=== PATIENT | female | born 1980 | race Caucasian/White ===

== ENCOUNTER 2016-05-13 23:46 | Observation (INO) | payer OTHER ==
[2016-05-14] MEDS ORDERED: NORMAL SALINE 1000 ML 1,000 ML IV ONE (01:23)
[2016-05-14] MEDS ORDERED: ONDANSETRON HCL INJ/PF 4 MG/2 ML SDV IV ONE ×2 (01:23→04:37)
[2016-05-14 01:51] LABS: HEMATOCRIT 51.1 % (36.0-47.0); HEMOGLOBIN 16.6 g/dL (12.0-15.5); HGB HCT DIFFERENCE -1.3; MEAN CORPUSCULAR HEMOGLOBIN 31.4 pg (27.0-33.4); MEAN CORPUSCULAR HGB CONC 32.4 g/dL (32.0-36.0); MEAN CORPUSCULAR VOLUME 97 fl (80-97); RED BLOOD COUNT 5.28 10^6/uL (3.72-5.28); RED CELL DISTRIBUTION WIDTH 14.5 % (11.5-14.0); WHITE BLOOD COUNT 11.3 10^3/uL (4.0-10.5)
[2016-05-14 01:58] LABS: ALANINE AMINOTRANSFERASE 130 U/L (9-52); ALBUMIN 5.3 g/dL (3.5-5.0); ALKALINE PHOSPHATASE 82 U/L (38-126); ASPARTATE AMINO TRANSFERASE 150 U/L (14-36); BILIRUBIN,DIRECT 0.2 mg/dL (0.0-0.3); BILIRUBIN,TOTAL 4.2 mg/dL (0.2-1.3); BLOOD UREA NITROGEN 31 mg/dL (7-20); CALCIUM 11.5 mg/dL (8.4-10.2); CREATININE RESULT 1.24 mg/dL (0.52-1.25); GLUCOSE 225 mg/dL (75-110)
[2016-05-14] MEDS ORDERED: PROMETHAZINE HCL INJ 25 MG/1 ML VIAL IM ONE (01:58)
--- NOTE | 2016-05-14 02:00 | ER Document Report ---
ED General - General Chief Complaint: Nausea/Vomiting Stated Complaint: VOMITING Notes: Patient is a 35-year-old female presents with complaint of intractable vomiting. She says been ongoing for just over a day. She says she cannot hold down food or liquids. No diarrhea. No abdominal pain. No fevers. No blood in emesis. She was admitted back in June for a cholesterol. Patient says she drinks only on occasion now. She says she does not go through withdrawal anymore. She said the last time she drank alcohol was on Monday which was 5 days ago. No fevers. Only sick contact with the child who had some vomiting. No other complaints at this time. TRAVEL OUTSIDE OF THE [place] IN LAST 30 DAYS: No - Related Data Allergies/Adverse Reactions: No Known Allergies Allergy (Verified 11/19/13 20:02) Past Medical History - Social History Smoking Status: Never Smoker Chew tobacco use (# tins/day): No Frequency of alcohol use: Occasional Drug Abuse: None Family History: Reviewed & Not Pertinent Patient has suicidal ideation: No Patient has homicidal ideation: No Renal/ Medical History: Denies: Hx Peritoneal Dialysis Psychiatric Medical History: Reports: Hx Anxiety, Hx Depression Past Surgical History: Reports: Hx Breast Surgery - Immunizations Hx Diphtheria, Pertussis, Tetanus Vaccination: Yes Review of Systems - Review of Systems Notes: My Normal Review Basic REVIEW OF SYSTEMS: CONSTITUTIONAL : Denies fever, chills, or sweats. Denies recent illness. EENT: Denies eye, ear, throat, or mouth pain or symptoms. Denies nasal or sinus congestion. RESPIRATORY: Denies cough, cold, or chest congestion. Denies shortness of breath, difficulty breathing, or wheezing. GASTROINTESTINAL: Denies abdominal pain. Recurrent vomiting GENITOURINARY: Denies difficulty urinating, painful urination, burning, frequency, or blood in urine. FEMALE GENITOURINARY: Denies vaginal bleeding, abnormal or irregular periods. LMP: MUSCULOSKELETAL: Denies neck or back pain or joint pain or swelling. SKIN: Denies rash or skin lesions. NEUROLOGICAL: Denies altered mental status or loss of consciousness. Denies headache. Denies weakness or paralysis or loss of use of either side. Denies problems with gait or speech. Denies sensory or motor loss. ALL OTHER SYSTEMS REVIEWED AND NEGATIVE. Physical Exam - Vital signs Vitals: Temp Pulse Resp BP Pulse Ox 97.4 F 150 H 16 115/59 L 96 05/13/16 23:53 05/13/16 23:53 05/13/16 23:53 05/13/16 23:53 05/13/16 23:53 - Notes Notes: General Appearance: Well nourished, alert, cooperative, no acute distress, no obvious discomfort. Well-appearing. Vitals: reviewed, See vital signs table. Head: no swelling or tenderness to the head Eyes: PERRL, EOMI, Conjuctiva clear Mouth: No decreasd moisture Neck: Supple, no neck tenderness, No thyromegaly Lungs: No wheezing, No rales, No rhonci, No accessory muscle use, good air exchange bilaterally. Heart: Tachycardic rate, Regular rythm, No murmur, no rub Abdomen: Normal BS, soft, No rigidity, No abdominal tenderness, No guarding, no rebound, no abdominal masses, no organomegaly Extremities: strength 5/5 in all extremities, good pulses in all extremities, no swelling or tenderness in the extremities, no edema. Skin: warm, dry, appropriate color, no rash Neuro: speech clear, oriented x 3, normal affect, responds appropriately to questions. Course - Vital Signs Vital signs: Temp Pulse Resp BP Pulse Ox 97.4 F 150 H 20 115/59 L 96 05/13/16 23:53 05/13/16 23:53 05/14/16 01:00 05/13/16 23:53 05/13/16 23:53 - Laboratory Result Diagrams: 05/14/16 01:20 05/14/16 01:20 Laboratory results interpreted by me: 05/14/16 05/14/16 01:20 01:20 WBC 11.3 H Hgb 16.6 H Hct 51.1 H RDW 14.5 H Seg Neuts % (Manual) 79 H Lymphocytes % (Manual) 12 L Abs Neuts (Manual) 8.9 H Potassium 5.5 H Carbon Dioxide 12 L Anion Gap 35 H BUN 31 H Est GFR ( Amer) 59 L Est GFR (Non-Af Amer) 49 L Glucose 225 H Calcium 11.5 H Total Bilirubin 4.2 H AST 150 H ALT 130 H Total Protein 11.0 H Albumin 5.3 H - Transfer of Care Notes: 05/14/16 05:33 Patient's nausea is improving. She is very acidotic with big ion gap. She also has a slight bump in her liver enzymes. I see in the past she does have a history of alcohol abuse. She initially told me that she just drank one or 2 beers on Monday and no other alcohol use. I went back and asked her again about this being that I have concern that this could be alcohol induced. She now tells me that she drank Monday and Monday and then stopped. She said that Monday her symptoms started. She again tells me that she only drank a small amount of alcohol on those days; however, I suspect that there is a good chance she drank a little more than what she leads onto and that this is probably why she is acidotic and has been vomiting and feels unwell. Initially she was a little bit hyperglycemic. Her sugar returned to normal just IV fluids. I do not suspect new-onset diabetes. Her Accu-Chek was 110. Patient' s will be admitted for further workup and treatment. I will order a total of 3 L of fluids. She has received 1-1/2 L thus far. Dictation of this chart was performed using voice recognition software; therefore, there may be some unintended grammatical errors. 05/14/16 05:36 Discharge - Discharge Clinical Impression: Elevated LFTs, Hyperkalemia, Metabolic acidosis Vomiting Qualifiers: Vomiting type: unspecified Vomiting Intractability: unspecified Nausea presence : with nausea Qualified Code(s): R11.2 - Nausea with vomiting, unspecified Condition: Stable Disposition: ADMITTED INPATIENT Admitting Provider: Hospitalist Unit Admitted: [facility]
[2016-05-14 02:06] LABS: CARBON DIOXIDE 12 mmol/L (22-30); CHLORIDE 98 mmol/L (98-107); POTASSIUM 5.5 mmol/L (3.6-5.0); SODIUM 144.5 mmol/L (137-145)
[2016-05-14 02:07] LABS: ANION GAP 35 (5-19)
[2016-05-14 02:18] LABS: BASOPHILS % (MANUAL) 0 % (0-2); EOSINOPHILS % (MANUAL) 0 % (0-6); LYMPHOCYTES % (MANUAL) 12 % (13-45); RBC MORPHOLOGY COMMENT NORMO-CYTIC/CHROMIC; TOTAL CELLS COUNTED 100
[2016-05-14] MEDS ORDERED: PROMETHAZINE HCL INJ 25 MG/1 ML VIAL ONE (03:56)
[2016-05-14] MEDS ORDERED: NORMAL SALINE 1000 ML 1,000 ML IV PRN (04:36)
[2016-05-14 06:30] LABS: BLOOD UREA NITROGEN 21 mg/dL (7-20); CALCIUM 9.7 mg/dL (8.4-10.2); CARBON DIOXIDE 13 mmol/L (22-30); CHLORIDE 107 mmol/L (98-107); CREATININE RESULT 0.67 mg/dL (0.52-1.25); GLUCOSE 116 mg/dL (75-110); MAGNESIUM 1.8 mg/dL (1.6-2.3)
[2016-05-14 06:37] LABS: SODIUM 142.6 mmol/L (137-145)
[2016-05-14 06:40] LABS: ANION GAP 23 (5-19); POTASSIUM 4.4 mmol/L (3.6-5.0)
[2016-05-14] MEDS ORDERED: NORMAL SALINE 1000 ML 2,000 ML IV ONE (06:44)
[2016-05-14] MEDS ORDERED: ACETAMINOPHEN 325 MG TABLET PO PRN (07:24)
[2016-05-14] MEDS ORDERED: PROMETHAZINE HCL INJ 25 MG/1 ML VIAL IV PRN (07:30)
--- NOTE | 2016-05-14 07:54 | PDOC H&P ---
History of Present Illness Admission Date/PCP: 05/14/16 05:48 [facility] Patient complains of: nausea, vomiting History of Present Illness: CHERI RUBY is a 35 year old female with a history of alcohol abuse who presents to the emergency room for evaluation of a several day history of recurrent vomiting. Cannot even keep down water. No unusual oral intake. No friends or family with similar complaints. No diarrhea. Small bowel movement 24 hours ago. Only has abdominal pain during the vomiting itself. No fever. No hematemesis or coffee ground emesis. Please review emergency room physician notes concerning his discussions with patient concerning her alcohol intake. She admits to drinking alcohol Monday and Monday but is quite evasive about how much. Symptoms started the following day. Patient has been discussed with emergency room physician who evaluated the patient. . Laboratory results are listed in [employer] and are reviewed. Social history/personal habits: . 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 Denies use of tobacco or illicit drugs. Admits to drinking vodka, but is quite evasive about how much she drinks. Allergies/adverse reactions NKDA. Home medications none REVIEW OF SYSTEMS: Constitutional: No fever or chills. Eyes: No current vision complaints. ENT: No swallowing problems or complaints. No hearing problems or complaints. Pulmonary: No current complaints. Cardiovascular: No current complaints, including chest pain. Gastrointestinal: See history and present illness. Skin: No current complaints, including rashes. Hematologic: Easy bruising. Neurologic: No current complaints, including numbness or tingling. Musculoskeletal: No current complaints, including painful joints. Psychiatric: Anxiety depression; denies suicidal or homicidal ideation. Endocrine: No current complaints, including polyuria. Genitourinary: No current complaints, including dysuria. PHYSICAL EXAMINATION: 5 feet 5 inches tall. 72 kg. Temperature 97.4. Blood pressure 123/99. Pulse 88 and regular. Respirations are 20 and unlabored. 100% saturation on room air. Female emergency room nurse Patricia is present. Slightly overweight somewhat chronically ill-appearing female who appears a bit older than her stated age. Appears to feel a bit under the weather, so to speak. Otherwise, pleasant awake alert and cooperative. Mildly anxious, without agitation. Skin is warm and dry. No grossly obvious evidence of rash in areas of skin examined. No subcutaneous nodules palpated. ENT: Hearing grossly normal to normal conversation. Tongue midline on protrusion pink and slightly tacky. Eyes: No scleral icterus. Pupils equal and reactive to light at 4 mm. [place] conjunctivae. Neck is supple and nontender to gentle active range of motion and palpation. Midline trachea. No palpable thyroid nodule mass enlargement or tenderness. Lymphatic: No palpable cervical or clavicular nodes. Neck and lymphatic exams limited by patient body habitus. Psychiatric: Fair to reasonable insight into acute and chronic medical issues. Oriented to time location and why here. Lungs: Auscultation reveals clear and equal breath sounds bilaterally. No use of accessory respiratory muscles. Cardiovascular: Heart regular rate and rhythm, without gallop murmur or rub. No carotid or abdominal aortic bruits. No ankle or pedal edema. palpable dorsalis pedis pulses. Abdomen: soft, slightly distended essentially nontender with positive bowel sounds. Unable to adequately evaluate abdomen for masses or organomegaly due to distention. Extremities: Feet are warm and dry. No calf tenderness to compression. No grossly obvious visual evidence of calf swelling. Gentle manipulation of lower extremities fails to reveal any obvious evidence of injury or instability to knees hips or ankles. Neurologic: Moves upper extremities grossly normally. Patellar reflexes absent. Absent Babinski. Light touch is intact at feet. Dorsiflexion and plantarflexion of feet 5 / 5 and symmetric. Past Medical History Cardiac Medical History: Denies: Congestive Heart Failure, DVT, Myocardial Infarction, Hyperlipidema, Hypertension, Pulmonary Embolism Pulmonary Medical History: Denies: Asthma, Chronic Obstructive Pulmonary Disease (COPD) EENT Medical History: Denies: Eyes, Ears, Throat Neurological Medical History: Reports: Seizures - Alcohol withdrawal; last episode June of last year. Denies: Hemorrhagic CVA, Ischemic CVA Endocrine Medical History: Denies: Diabetes Mellitus Type 1, Diabetes Mellitus Type 2, Hyperthyroidism, Hypothyroidism Renal/ Medical History: Reports: None GI Medical History: Denies: Cirrhosis, Gastroesophageal Reflux Disease, Hepatitis, Peptic Ulcer Disease Musculoskeltal Medical History: Denies: Arthritis Skin Medical History: Reports: None Denies: Eczema, Psoriasis Psychiatric Medical History: Reports: Alcohol Dependency, Depression, General Anxiety Disorder Denies: Substance Abuse, Tobacco Dependency Hematology: Reports: Other - Easy bruising. Infectious Medical History: Denies: Hepatitis B, Hepatitis C Past Surgical History Past Surgical History: Reports: Other - [place] teeth extraction. Lasik surgery. Social History Information Source: Patient, Emergency Med Personnel, [facility] Records Lives with: Spouse/Significant other Smoking Status: Never Smoker Frequency of Alcohol Use: Heavy - Suspected Drugs: None - Advance Directive Resuscitation Status: Full Code Surrogate healthcare decision maker:: Family History Family History: Reviewed & Not Pertinent Parental Family History Reviewed: Yes Children Family History Reviewed: Yes Sibling(s) Family History Reviewed.: Yes Medication/Allergy Home Medications: Folic Acid 1 mg PO DAILY #30 tablet 05/15/16 Multivitamin [Multivitamins] 1 each PO DAILY #30 tab.chew 05/15/16 Omeprazole Magnesium [Prilosec Otc] 20 mg PO BID #60 tablet.dr 05/15/16 Ondansetron [Zofran Odt 4 mg Tablet] 4 mg PO Q4HP PRN #30 tab.rapdis 05/15/16 Thiamine HCl [Thiamine 100 mg Tablet] 100 mg PO DAILY #30 tablet 05/15/16 Allergies/Adverse Reactions: No Known Allergies Allergy (Verified 11/19/13 20:02) Physical Exam Vital Signs: Temp Pulse Resp BP Pulse Ox 97.4 F 150 H 20 115/59 L 96 05/13/16 23:53 05/13/16 23:53 05/14/16 01:00 05/13/16 23:53 05/13/16 23:53 Assessment & Plan - Diagnosis (1) ARF (acute renal failure) Qualifiers: Acute renal failure type: unspecified Qualified Code(s): N17.9 - Acute kidney failure, unspecified Is this a current diagnosis for this admission?: YesPlan: Likely prerenal in etiology. Should clear with IV fluids. Follow-up chemistry. (2) Elevated LFTs Is this a current diagnosis for this admission?: YesPlan: Likely due to underlying acute and chronic alcohol abuse. Follow-up chemistry. (3) Hypercalcemia Is this a current diagnosis for this admission?: YesPlan: Should clear with hydration. Follow-up chemistry. (4) Hyperkalemia Is this a current diagnosis for this admission?: YesPlan: Should clear with hydration. Follow-up chemistry. (5) Metabolic acidosis Is this a current diagnosis for this admission?: YesPlan: Likely due at least part to dehydration. Should clear with hydration. Follow- up chemistry. (6) Vomiting Qualifiers: Vomiting type: unspecified Vomiting Intractability: unspecified Nausea presence: with nausea Qualified Code(s): R11.2 - Nausea with vomiting, unspecified Is this a current diagnosis for this admission?: YesPlan: Possibly due to alcoholic gastritis. Viral etiology also. When necessary Phenergan. Ice chips only. Advance diet as tolerated. IV Pepcid. I have strongly encouraged patient not to get out of bed without notifying staff , to avoid a fall with injury. Knee high SCDs for DVT prophylaxis; will check coags given patient's underlying probable liver disease prior to instituting Lovenox or heparin. Impression and plans were discussed with patient, who concurs. Time spent in evaluation and management of patient: 64 minutes. (7) Alcohol use Is this a current diagnosis for this admission?: YesPlan: Daily banana bag. When necessary Ativan.
[2016-05-14] MEDS ORDERED: NORMAL SALINE 1000 ML 1,000 ML with THIAMINE HCL 100 MG, MVI, ADULT NO.1 WITH VIT K 10 ... IV PRN ×8 (08:00→12:00)
[2016-05-14 08:22] LABS: PROTHROMBIN TIME 14.4 SEC (11.4-15.4)
[2016-05-14 08:23] LABS: PARTIAL THROMBOPLASTIN TIME 26.4 SEC (23.5-35.8)
[2016-05-14] MEDS: NORMAL SALINE 1000 ML 1,000 ML IV PRN ×3 (09:14→22:40)
[2016-05-14] MEDS: DOCUSATE SODIUM 100 MG CAPSULE PO SCH ×2 (09:38→17:44)
[2016-05-14] MEDS: FAMOTIDINE INJ/PF 20 MG/2 ML SDV IV SCH ×2 (09:39→22:24)
[2016-05-14] MEDS: LORAZEPAM INJ 2 MG/1 ML VIAL IV PRN ×2 (09:41→22:48)
[2016-05-14 13:27] LABS: ANION GAP 15 (5-19); BLOOD UREA NITROGEN 15 mg/dL (7-20); CALCIUM 8.6 mg/dL (8.4-10.2); CARBON DIOXIDE 17 mmol/L (22-30); CHLORIDE 110 mmol/L (98-107); CREATININE RESULT 0.48 mg/dL (0.52-1.25); GLUCOSE 101 mg/dL (75-110); SODIUM 142.2 mmol/L (137-145)
[2016-05-14 13:40] LABS: POTASSIUM 3.3 mmol/L (3.6-5.0)
[2016-05-14 19:51] LABS: APPEARANCE,URINE CLEAR; BILIRUBIN,URINE NEGATIVE (NEGATIVE); GLUCOSE, URINE NEGATIVE (NEGATIVE); KETONES,URINE 20 mg/dL (NEGATIVE); LEUKOCYTE ESTERASE,URINE NEGATIVE (NEGATIVE); NITRITE,URINE NEGATIVE (NEGATIVE); PROTEIN,URINE NEGATIVE (NEGATIVE)
[2016-05-14 20:04] LABS: URINE BARBITURATES SCREEN NEGATIVE; URINE METHADONE SCREEN NEGATIVE; URINE OPIATES LOW NEGATIVE; URINE PHENCYCLIDINE SCREEN NEGATIVE
[2016-05-14] MEDS: POTASSI CL 20 MEQ/50 ML RIDER 20 MEQ/50 ML RTUPB IV SCH ×2 (20:34→22:23)
[2016-05-15] MEDS: NORMAL SALINE 1000 ML 1,000 ML IV PRN (04:43)
[2016-05-15 06:52] LABS: ABSOLUTE LYMPHOCYTES (AUTO) 0.9 10^3/uL (0.5-4.7); ABSOLUTE MONOCYTES (AUTO) 0.5 10^3/uL (0.1-1.4); ABSOLUTE NEUT (AUTO) 3.3 10^3/uL (1.7-8.2); BASOPHILS % (AUTO) 0.5 % (0-2); HEMATOCRIT 37.8 % (36.0-47.0); HGB HCT DIFFERENCE 0.9; LYMPHOCYTES % (AUTO) 19.5 % (13-45); MEAN CORPUSCULAR HEMOGLOBIN 32.9 pg (27.0-33.4); MEAN CORPUSCULAR HGB CONC 34.2 g/dL (32.0-36.0); MEAN CORPUSCULAR VOLUME 96 fl (80-97); MONOCYTES % (AUTO) 10.1 % (3-13); RED BLOOD COUNT 3.93 10^6/uL (3.72-5.28); RED CELL DISTRIBUTION WIDTH 14.5 % (11.5-14.0); SEGMENTED NEUTROPHILS % (AUTO) 69.9 % (42-78); WHITE BLOOD COUNT 4.7 10^3/uL (4.0-10.5)
[2016-05-15 07:05] LABS: HEMOGLOBIN 12.9 g/dL (12.0-15.5)
[2016-05-15 07:12] LABS: ALANINE AMINOTRANSFERASE 91 U/L (9-52); ALKALINE PHOSPHATASE 54 U/L (38-126); ANION GAP 14 (5-19); ASPARTATE AMINO TRANSFERASE 128 U/L (14-36); BILIRUBIN,DIRECT 0.1 mg/dL (0.0-0.3); BILIRUBIN,TOTAL 4.4 mg/dL (0.2-1.3); BLOOD UREA NITROGEN 7 mg/dL (7-20); CALCIUM 8.4 mg/dL (8.4-10.2); CARBON DIOXIDE 19 mmol/L (22-30); CHLORIDE 107 mmol/L (98-107); CREATININE RESULT 0.42 mg/dL (0.52-1.25); GLUCOSE 77 mg/dL (75-110); POTASSIUM 3.3 mmol/L (3.6-5.0); SODIUM 140.3 mmol/L (137-145); TOTAL PROTEIN 7.1 g/dL (6.3-8.2)
[2016-05-15] MEDS: FAMOTIDINE INJ/PF 20 MG/2 ML SDV IV SCH (09:58)
[2016-05-15] MEDS: DOCUSATE SODIUM 100 MG CAPSULE PO SCH (09:59)
[2016-05-15] MEDS ORDERED: NORMAL SALINE 1000 ML 1,000 ML with THIAMINE HCL 100 MG, MVI, ADULT NO.1 WITH VIT K 10 ... IV PRN ×4 (10:00)
[2016-05-15] MEDS ORDERED: POTASSIUM CHLORIDE 10 MEQ TABLET.SA PO ONE (10:15)
--- NOTE | 2016-05-15 10:18 | PDOC DISCHARGE SUMMARY ---
General - Admit/Disc Date/PCP Admission Date/Primary Care Provider: 05/14/16 07:00 Discharge Date: 05/15/16 - Discharge Diagnosis (1) ARF (acute renal failure) Is this a current diagnosis for this admission?: Yes (2) Hypercalcemia Is this a current diagnosis for this admission?: Yes (3) Hyperkalemia Is this a current diagnosis for this admission?: Yes (4) Metabolic acidosis Is this a current diagnosis for this admission?: Yes (5) Alcoholic gastritis without bleeding Is this a current diagnosis for this admission?: Yes (6) Alcoholic hepatitis Is this a current diagnosis for this admission?: Yes - Additional Information Resuscitation Status: Full Code Discharge Diet: Regular Discharge Activity: Activity As Tolerated, Balance Activity w/Rest Home Medications: Folic Acid 1 mg PO DAILY #30 tablet 05/15/16 Multivitamin [Multivitamins] 1 each PO DAILY #30 tab.chew 05/15/16 Omeprazole Magnesium [Prilosec Otc] 20 mg PO BID #60 tablet.dr 05/15/16 Ondansetron [Zofran Odt 4 mg Tablet] 4 mg PO Q4HP PRN #30 tab.rapdis 05/15/16 Thiamine HCl [Thiamine 100 mg Tablet] 100 mg PO DAILY #30 tablet 05/15/16 Additional Information: Stop all alcohol History of Present Illness Patient complains of: Nausea and vomiting History of Present Illness: CHERI RUBY is a 35 year old female, with history of alcohol abuse presents to the hospital with nausea and vomiting of several days duration and some abdominal discomfort but no diarrhea. Patient is unable to keep anything by mouth. The patient went to the emergency room and found to have a low bicarbonate level with elevated creatinine and therefore the patient was referred for admission for details please refer to history and physical examination performed by the admitting physician. Hospital Course Hospital Course: The patient was admitted to telemetry. The patient was kept nothing by mouth and IV hydration was performed. Intravenous Pepcid was given for possible gastritis. Supplemental thiamine, folic acid and multivitamins were given. The patient s creatinine was monitored and has normalized. Acidosis improved. Liver functions were also noted to be elevated is trending down. The patient's symptomatology significantly improved with hydration. Diet was advanced and he tolerated it. Patient was educated about chronic complications of alcohol and she understood. Course was noted for hypokalemia which was replaced. Initial hypercalcemia resolved as well. The rest of the hospital stay is unremarkable. Physical Exam Vital Signs: Temp Pulse Resp BP Pulse Ox 98.1 F 90 18 140/91 H 100 05/15/16 07:28 05/15/16 07:28 05/15/16 07:28 05/15/16 07:28 05/15/16 07:28 Intake & Output 05/14/16 05/15/16 05/16/16 06:59 06:59 06:59 Intake Total 5413 Output Total 1400 Balance 4013 Weight 72.4 kg General appearance: PRESENT: no acute distress, cooperative Head exam: PRESENT: normocephalic Eye exam: PRESENT: EOMI Mouth exam: PRESENT: moist, neck supple Neck exam: ABSENT: JVD Respiratory exam: PRESENT: clear to auscultation karan. ABSENT: rhonchi, wheezes Cardiovascular exam: PRESENT: RRR. ABSENT: gallop GI/Abdominal exam: PRESENT: soft. ABSENT: distended, tenderness Extremities exam: ABSENT: pedal edema Neurological exam: PRESENT: alert, awake, oriented to person, oriented to place , oriented to time, oriented to situation Skin exam: PRESENT: dry, warm. ABSENT: cyanosis Results Laboratory Results: 05/15/16 06:44 05/15/16 06:44 05/14/16 05/14/16 05/15/16 12:22 19:20 06:44 WBC 4.7 RBC 3.93 Hgb 12.9 D Hct 37.8 MCV 96 MCH 32.9 MCHC 34.2 RDW 14.5 H Plt Count 112 L Seg Neutrophils % 69.9 Lymphocytes % 19.5 Monocytes % 10.1 Eosinophils % 0.0 Basophils % 0.5 Absolute Neutrophils 3.3 Absolute Lymphocytes 0.9 Absolute Monocytes 0.5 Absolute Eosinophils 0.0 Absolute Basophils 0.0 Sodium 142.2 Potassium 3.3 L D Chloride 110 H Carbon Dioxide 17 L Anion Gap 15 BUN 15 Creatinine 0.48 L Est GFR ( Amer) > 60 Est GFR (Non-Af Amer) > 60 Glucose 101 Calcium 8.6 Total Bilirubin AST ALT Alkaline Phosphatase Total Protein Albumin Urine Color NURY Urine Appearance CLEAR Urine pH 6.0 Ur Specific Fults 1.020 Urine Protein NEGATIVE Urine Glucose (UA) NEGATIVE Urine Ketones 20 H Urine Blood NEGATIVE Urine Nitrite NEGATIVE Ur Leukocyte Esterase NEGATIVE Urine WBC (Auto) 3 Urine RBC (Auto) 1 05/15/16 06:44 WBC RBC Hgb Hct MCV MCH MCHC RDW Plt Count Seg Neutrophils % Lymphocytes % Monocytes % Eosinophils % Basophils % Absolute Neutrophils Absolute Lymphocytes Absolute Monocytes Absolute Eosinophils Absolute Basophils Sodium 140.3 Potassium 3.3 L Chloride 107 Carbon Dioxide 19 L Anion Gap 14 BUN 7 Creatinine 0.42 L Est GFR ( Amer) > 60 Est GFR (Non-Af Amer) > 60 Glucose 77 Calcium 8.4 Total Bilirubin 4.4 H AST 128 H ALT 91 H Alkaline Phosphatase 54 Total Protein 7.1 Albumin 4.0 Urine Color Urine Appearance Urine pH Ur Specific Fults Urine Protein Urine Glucose (UA) Urine Ketones Urine Blood Urine Nitrite Ur Leukocyte Esterase Urine WBC (Auto) Urine RBC (Auto) Qualifiers [place] BEING DISCHARGED WITH ANY OF THE FOLLOWING DIAGNOSIS?: No Plan Discharge Plan: Follow-up with primary care physician in one week. Follow-up with gastroenterology as outpatient in 1-2 weeks for possible endoscopy. Time Spent: Less than 30 Minutes
[2016-05-15 12:30] VITALS: BP 115/59
== END 2016-05-15 14:00 | disposition home or self-care (01) ==
LOC: ER 23:46 → UNDOADMIN 05-14 05:48 → EH 05-14 05:48 → INTOOBSV 05-14 07:00 → 3W 05-14 08:15 → EH 05-14 08:15
PROVIDERS: ADMIT Family Medicine; ATTEND Family Medicine
DX: N17.9 Acute kidney failure, unspecified (principal); K29.20 Alcoholic gastritis without bleeding; K70.10 Alcoholic hepatitis without ascites; R11.2 Nausea with vomiting, unspecified; E83.52 Hypercalcemia; E87.5 Hyperkalemia; E87.2 Acidosis; Z79.899 Other long term (current) drug therapy
CPT/HCPCS: 99285; 96374; 36415 ×2; 82962; 83690; 83735; 84703; 85025 ×2; 85610; 85730; 80048; 80053 ×2; 81001; 80307; G0378 ×2; J3490 ×4; J2060; J3411 ×2; J2405; J3480; J7030 ×2; S0028 ×2

== ENCOUNTER 2016-08-23 07:42 | Emergency (ER) | payer OTHER ==
--- NOTE | 2016-08-23 07:59 | ER Document Report ---
ED General - General Stated Complaint: CARDIAC ARREST Time Seen by Provider: 08/23/16 07:42 Mode of Arrival: Medic Information source: Emergency Med Personnel Cannot obtain history due to: Intubated, Unstable vital signs Notes: 37-year-old alcoholic female presents as a cardiac arrest. Patient was staying with family member overnight, this morning was ambulating and talking, and family had a seizure lasting approximately 1 minute, after the seizure patient went into cardiac arrest, EMS arrived within 4 minutes and noted patient was in V. fib. 2 rounds of epi and 2 shocks were delivered. A Maciel airway was placed On arrival in sinus tachycardia with bigeminy TRAVEL OUTSIDE OF THE [place] IN LAST 30 DAYS: No - HPI Onset: Just prior to arrival Onset/Duration: Sudden Quality of pain: No pain Severity: Severe Pain Level: Denies Associated symptoms: None Exacerbated by: Denies Relieved by: Denies Similar symptoms previously: No Recently seen / treated by doctor: Yes - Related Data Allergies/Adverse Reactions: No Known Allergies Allergy (Verified 11/19/13 20:02) Past Medical History - Social History Smoking Status: Current Every Day Smoker Cigarette use (# per day): Yes Chew tobacco use (# tins/day): No Smoking Education Provided: No Frequency of alcohol use: Heavy Family History: Reviewed & Not Pertinent - Past Medical History Cardiac Medical History: Denies: Hx Congestive Heart Failure, Hx DVT, Hx Heart Attack, Hx Hypercholesterolemia, Hx Hypertension, Hx Pulmonary Embolism Pulmonary Medical History: Denies: Hx Asthma, Hx COPD Neurological Medical History: Reports: Hx Seizures - Alcohol withdrawal; last episode June of last year. Endocrine Medical History: Denies: Hx Diabetes Mellitus Type 1, Hx Diabetes Mellitus Type 2, Hx Hyperthyroidism, Hx Hypothyroidism Renal/ Medical History: Denies: Hx Peritoneal Dialysis GI Medical History: Denies: Hx Cirrhosis, Hx Gastroesophageal Reflux Disease, Hx Hepatitis Musculoskeltal Medical History: Denies Hx Arthritis Skin Medical History: Denies Hx Eczema, Denies Hx Psoriasis Psychiatric Medical History: Reports: Hx Anxiety, Hx Depression Infectious Medical History: Denies: Hx Hepatitis Past Surgical History: Reports: Hx Breast Surgery, Other - [place] teeth extraction. Lasik surgery. - Immunizations Hx Diphtheria, Pertussis, Tetanus Vaccination: Yes Review of Systems - Review of Systems Notes: Review of systems unable to be obtained due to cardiac arrest PHYSICAL EXAMINATION: GENERAL: Ill-appearing female in no extremis. HEAD: Atraumatic, normocephalic. EYES: Pupils are fixed and dilated bilateral ENT: Nares blood in oral airway Maciel airway in place loose teeth all throughout NECK: Normal range of motion, supple without lymphadenopathy LUNGS: Coarse breath sounds all throughout HEART: Tachycardic ABDOMEN: Soft, nontender, nondistended abdomen. No guarding, no rebound. No masses appreciated. Female : deferred Musculoskeletal: No range of motion of extremities NEUROLOGICAL: GCS 3 intubated SKIN: Warm, Dry, normal turgor, no rashes or lesions noted. Physical Exam - Vital signs Vitals: Resp Pulse Ox 33 H 100 08/23/16 07:51 08/23/16 07:51 Course - Re-evaluation Re-evalutation: 08/23/16 07:54 Ines reveles i gave succ/ etomidate to switch out maciel airway but i noted that she is clenched tight, she is sating 100% , i will not switch it as she is protected at this time , her lower teeth are loose probably from seizure episode as her tongue is bit and blood is in the mouth cooling protocol started 08/23/16 08:00 Patient history does note alcohol abuse hyperkalemia, calcium will be given at this time 08/23/16 08:01 08/23/16 08:11 Family notes extensive alcohol abuse, patient was not feeling well last night, this morning she was talking and then suddenly seized for approximately 1 minute , they placed a spoon in her mouth to stop her from grinding her teeth, compressions were started immediately by family, ems arrived withing 4 minutes and noted v fib for another 15 min 08/23/16 08:18 Dr Virgen ICU refuses to accept patient with maciel airway, i explained that patient is satting 100% and airway is protected, removing will possibly lead to loss of airway at this time. he refuses to accept patient Anesthesia paged 08/23/16 08:28 Anesthesia agrees that there is a stable airway at this time i do not want ot remove this [facility] has been paged , 08/23/16 08:36 Dr Sparks will accept , Dr Otero anesthesia agrees not to remove the maciel airway. We will transfer once [facility] arrives. 08/23/16 08:51 Spoke with family members in the emergency department spoke with in [facility] 08/23/16 09:12 pt no longer sating 100% on maciel, went down to 87%, raised fio2 to 100% , sats went ot 100% anesthesia and surgery came down , anesthesia was able to intubate 08/23/16 09:42 Post intubation patient became hypoxic oxygen level dropped to the 30s, patient became bradycardic and lost pulses chest compressions epinephrine given. I placed to needle decompressions 14-gauge bilateral with blood from the left and air from the right, chest tube immediately placed by surgeon on left O2 sats improved immediately 08/23/16 10:04 Extensive report given to family and to EMS 08/23/16 10:44 I spoke with [facility] to [place] - Vital Signs Vital signs: Temp Pulse Resp BP Pulse Ox 96.3 F L 14 132/103 H 98 08/23/16 10:00 08/23/16 09:50 08/23/16 09:50 08/23/16 09:50 - Laboratory Result Diagrams: 08/23/16 07:51 08/23/16 07:51 Laboratory results interpreted by me: 08/23/16 08/23/16 08/23/16 07:51 07:51 07:51 MCV 101 H MCH 33.8 H RDW 14.6 H Plt Count 111 L Seg Neutrophils % 83.8 H Lymphocytes % 11.4 L Absolute Neutrophils 8.3 H Sodium 134.4 L Potassium 2.9 L* Carbon Dioxide 17 L Glucose 275 H POC Glucose Lactic Acid Calcium 7.5 L Phosphorus 4.8 H Magnesium 1.2 L* Total Bilirubin 4.1 H Direct Bilirubin 1.4 H AST 618 H ALT 226 H Alkaline Phosphatase 160 H 08/23/16 08/23/16 07:51 07:54 MCV MCH RDW Plt Count Seg Neutrophils % Lymphocytes % Absolute Neutrophils Sodium Potassium Carbon Dioxide Glucose POC Glucose 278 H Lactic Acid 4.3 H Calcium Phosphorus Magnesium Total Bilirubin Direct Bilirubin AST ALT Alkaline Phosphatase - EKG Interpretation by Me EKG shows normal: Sinus rhythm, [place], Intervals, QRS Complexes Rate: Tachycardia P Waves: Other - bigeminy Procedures - Additional Procedures needle decompression left chest Time performed: :24 - 14 guage needle in left chest with blood return needle decompression right chest Time performed: : - 14 guage needle in right chest with air return chest compression Time performed: 09:20 - chest compressions for 5 minutes Critical Care Note - Critical Care Note Total time excluding time spent on procedures (mins): 175 Comments: 75 minutes of critical care time spent in direct contact evaluating and reevaluating the patient, treating symptoms, reviewing labs and studies and speaking with family and consultants excluding any procedures Discharge - Discharge Clinical Impression: Cardiac arrest, Elevated LFTs, Hypokalemia, Hypomagnesemia, Respiratory failure requiring intubation Alcohol withdrawal Qualifiers: Complication of substance-induced condition: with unspecified complication Qualified Code(s): F10.239 - Alcohol dependence with withdrawal, unspecified Condition: Critical Disposition: [facility]
[2016-08-23] MEDS ORDERED: SUCCINYLCHOLINE CHLORIDE INJ 200 MG/10 ML VIAL IV ONE (08:00)
[2016-08-23] MEDS ORDERED: LIDOCAINE 2% INJ-PF (100 MG/5 ML) SYRINGE IV ONE (08:00)
[2016-08-23] MEDS ORDERED: ETOMIDATE INJ/PF 20 MG/10 ML SDV IV ONE (08:00)
[2016-08-23] MEDS ORDERED: CALCIUM GLUCONATE 1000 MG/10 ML INJ IV ONE (08:00)
[2016-08-23] MEDS ORDERED: MIDAZOLAM HCL 100 ML IV PRN (08:03)
[2016-08-23 08:05] LABS: ABSOLUTE LYMPHOCYTES (AUTO) 1.1 10^3/uL (0.5-4.7); ABSOLUTE MONOCYTES (AUTO) 0.4 10^3/uL (0.1-1.4); ABSOLUTE NEUT (AUTO) 8.3 10^3/uL (1.7-8.2); BASOPHILS % (AUTO) 0.4 % (0-2); EOSINOPHILS % (AUTO) 0.1 % (0-6); HEMATOCRIT 39.4 % (36.0-47.0); HEMOGLOBIN 13.2 g/dL (12.0-15.5); HGB HCT DIFFERENCE 0.2; LYMPHOCYTES % (AUTO) 11.4 % (13-45); MEAN CORPUSCULAR HEMOGLOBIN 33.8 pg (27.0-33.4); MEAN CORPUSCULAR HGB CONC 33.5 g/dL (32.0-36.0); MEAN CORPUSCULAR VOLUME 101 fl (80-97); MONOCYTES % (AUTO) 4.3 % (3-13); RED BLOOD COUNT 3.91 10^6/uL (3.72-5.28); RED CELL DISTRIBUTION WIDTH 14.6 % (11.5-14.0); SEGMENTED NEUTROPHILS % (AUTO) 83.8 % (42-78); WHITE BLOOD COUNT 9.9 10^3/uL (4.0-10.5)
[2016-08-23] MEDS ORDERED: MIDAZOLAM HCL 100 ML IV ONE (08:07)
[2016-08-23] MEDS ORDERED: LIDOCAINE HCL/D5W/PF 2,000 MG/250 ML RTUINJ IV ONE (08:15)
[2016-08-23 08:17] LABS: ALANINE AMINOTRANSFERASE 226 U/L (9-52); ALBUMIN 3.8 g/dL (3.5-5.0); ALKALINE PHOSPHATASE 160 U/L (38-126); ANION GAP 19 (5-19); ASPARTATE AMINO TRANSFERASE 618 U/L (14-36); BILIRUBIN,DIRECT 1.4 mg/dL (0.0-0.4); BILIRUBIN,TOTAL 4.1 mg/dL (0.2-1.3); BLOOD UREA NITROGEN 7 mg/dL (7-20); CALCIUM 7.5 mg/dL (8.4-10.2); CARBON DIOXIDE 17 mmol/L (22-30); CHLORIDE 98 mmol/L (98-107); CREATINE KINASE 70 U/L (30-135); CREATININE RESULT 0.59 mg/dL (0.52-1.25); GLUCOSE 275 mg/dL (75-110); SODIUM 134.4 mmol/L (137-145); TOTAL PROTEIN 6.8 g/dL (6.3-8.2)
[2016-08-23 08:30] LABS: MAGNESIUM 1.2 mg/dL (1.6-2.3)
[2016-08-23 08:31] LABS: POTASSIUM 2.9 mmol/L (3.6-5.0)
[2016-08-23 08:34] LABS: CREATINE KINASE MB 0.82 ng/mL (<4.55); TROPONIN I 0.017 ng/mL
[2016-08-23] MEDS: NORMAL SALINE 1000 ML 1,000 ML IV PRN ×2 (08:35→09:05)
[2016-08-23] MEDS: MAGNESIUM SULFATE/D5W 100 ML IV SCH ×2 (08:55→09:58)
[2016-08-23] MEDS: POTASSI CL 20 MEQ/50 ML RIDER 50 ML IV SCH ×2 (08:56→10:05)
--- NOTE | 2016-08-23 09:00 | RADIOLOGY REPORT (SQ) ---
EXAM DESCRIPTION: CHEST SINGLE VIEW COMPLETED DATE/TIME: 08/23/2016 8:35 am REASON FOR STUDY: post arrest COMPARISON: June 2015 EXAM PARAMETERS: NUMBER OF VIEWS: One view. TECHNIQUE: Single frontal radiographic view of the chest acquired. RADIATION DOSE: NA LIMITATIONS: None. FINDINGS: LUNGS AND PLEURA: No opacities, masses or pneumothorax. No pleural effusion. MEDIASTINUM AND HILAR STRUCTURES: No masses. Contour normal. HEART AND VASCULAR STRUCTURES: Heart normal in size. Normal vasculature. BONES: Thoracic scoliosis convex to the right is identified which may be positional in nature. HARDWARE: Overlying monitoring devices are identified. OTHER: No other significant finding. IMPRESSION: NO ACUTE RADIOGRAPHIC FINDING IN THE CHEST. TECHNICAL DOCUMENTATION: JOB ID: [id number]
[2016-08-23] MEDS ORDERED: EPINEPHRINE INJ 1 MG/10 ML DISP.SYRIN IV ONE (09:38)
[2016-08-23 10:00] VITALS: BP 132/103
--- NOTE | 2016-08-23 10:20 | RADIOLOGY REPORT (SQ) ---
EXAM DESCRIPTION: CHEST SINGLE VIEW COMPLETED DATE/TIME: 08/23/2016 9:59 am REASON FOR STUDY: post intubation COMPARISON: Earlier the same day. NUMBER OF VIEWS: One view. TECHNIQUE: Single frontal radiographic image of the chest acquired. LIMITATIONS: None. FINDINGS: LUNGS AND PLEURA: Low lung volumes. No pneumothorax. MEDIASTINUM AND HEART: Stable heart size and mediastinal structures. SUPPORT DEVICES: Endotracheal tube tip between thoracic inlet and misbah. Nasogastric tube extends i nto the left upper quadrant. Large bore chest tube side-hole overlies left diaphragm. Clinician rep orts adequate function of the chest tube. BONY STRUCTURES: No acute findings. HARDWARE: None. OTHER: No other significant finding. IMPRESSION: Appropriate position of support apparatus. No pneumothorax.
--- NOTE | 2016-08-23 10:26 | OPERATIVE REPORT E ---
Operative Report NAME: CHERI RUBY : 1980 AGE: 35Y DATE OF SURGERY: ROOM: PREOPERATIVE DIAGNOSIS: Patient had a seizure and went into cardiorespiratory arrest undergoing cardiopulmonary resuscitation. The Emergency Room physician placed a needle in the left chest and air noted to come out. Because of this a left chest tube was then inserted. POSTOPERATIVE DIAGNOSES: 1. Seizures with cardiorespiratory arrest and undergoing cardiopulmonary resuscitation. 2. Left pneumothorax. SURGEON: DEBBIE JONES M.D. PROCEDURE: While patient resuscitated, we did CPR and heard spontaneous cardiac activity, and being ventilated through an endotracheal tube, the left chest just below the left breast was then prepped and draped in the usual sterile fashion. An incision was made along the scar from breast augmentation, the left fifth intercostal space palpated and subsequently dilated with a clamp. A 32-[place] [employer] *------* chest tube was then inserted up to about 8 cm approximately. It was then anchored to the skin with #0 silk. Chest tube connected to a Pleur-Evac. Chest x-ray was obtained and noted both lungs with no pneumothorax noted. In the meantime the patient being continuously ventilated and awaiting crew to transfer her to a tertiary facility. DICTATING PHYSICIAN: DEBBIE JONES M.D. [id number] PHY#: [id number] ID: [id number] JOB#: [id number] ACCT: [id number] cc:DEBBIE JONES M.D. >
[2016-08-23] MEDS ORDERED: ROCURONIUM BROMIDE INJ 50 MG/5 ML VIAL IV ONE ×2 (10:46→10:49)
[2016-08-23] MEDS ORDERED: SUCCINYLCHOLINE CHLORIDE INJ 200 MG/10 ML VIAL ONE (10:49)
[2016-08-23 11:33] LABS: URINE BARBITURATES SCREEN NEGATIVE; URINE METHADONE SCREEN NEGATIVE; URINE OPIATES LOW NEGATIVE; URINE PHENCYCLIDINE SCREEN NEGATIVE
--- NOTE | 2016-08-23 13:35 | EKG REPORT ---
SEVERITY:- ABNORMAL ECG - SINUS TACHYCARDIA VENTRICULAR BIGEMINY LOW VOLTAGE IN FRONTAL LEADS : Confirmed by: Andi Larson MD 23-Aug-2016 13:34:52
[2016-08-23] MEDS ORDERED: EPINEPHRINE INJ 1 MG/10 ML DISP.SYRIN ONE (14:35)
== END 2016-08-23 10:17 | disposition short-term general hospital (02) ==
LOC: ER 07:42
PROC: 0W9B30Z Drainage of Left Pleural Cavity with Drainage Device, Percutaneous Approach (ICD-10-PCS; principal; 2016-08-23)
PROC: 0BH17EZ Insertion of Endotracheal Airway into Trachea, Via Natural or Artificial Opening (ICD-10-PCS; 2016-08-23)
DX: I46.9 Cardiac arrest, cause unspecified (principal); F10.239 Alcohol dependence with withdrawal, unspecified; R56.9 Unspecified convulsions; E87.5 Hyperkalemia; S01.552A Open bite of oral cavity, initial encounter; W50.3XXA Accidental bite by another person, initial encounter; Y93.89 Activity, other specified; Y92.009 Unspecified place in unspecified non-institutional (private) residence as the place of occurrence of the external cause; F17.210 Nicotine dependence, cigarettes, uncomplicated; K08.89 Other specified disorders of teeth and supporting structures
CPT/HCPCS: 93005; 99291; 99292; 92950; 51702; 96375; 96365; 96368; 36415; 82553; 82962; 82550; 83735; 84100; 85025; 80053; 84484; 80307; 83605; 71010; 93010; 32551; 31500; J0610; J3490; J0171; J2001; J3475; J0330; J3480; J2250; J7030

== ENCOUNTER 2017-09-25 17:22 | Emergency (ER) | payer OTHER ==
[2017-09-25] MEDS ORDERED: ALPRAZOLAM 0.5 MG TABLET PO ONE (17:57)
--- NOTE | 2017-09-25 17:59 | ER Document Report ---
HPI - HPI Patient complains to provider of: Panic attack Onset: This afternoon Onset/Duration: Sudden Quality of pain: Other Severity: None Pain Level: Denies Context: Patient states she felt terrible a customer came in and she always suddenly started shaking so bad that she had to leave work. She states she has never had a panic attack before she has had some depression in the past. She states she had a MD last year from an infection and she has a history of high blood pressure. She states recently her got orders to move and then they put their house on the market and sold the house and in the transfer orders were canceled and now they have no place to live after November. She states also her [id number] had a stroke recently and is just too much for her at this time she states she also has a history of breast implants and she is to have the left one replaced next week due to surgery from her MD. Associated Symptoms: Other - Panic attack Exacerbated by: Denies Relieved by: Denies Similar symptoms previously: No Recently seen / treated by doctor: No - ROS ROS below otherwise negative: Yes - CONSTITUTIONAL Constitutional: DENIES: Fever, Chills - EENT EENT: DENIES: Sore Throat, Ear Pain, Nasal Drainage-Clear, Nasal Drainage- Purulent, Congestion, Eye problems - NEURO Neurology: DENIES: Headache, Weakness, Vision blurred, Dizzinesss / Vertigo - CARDIOVASCULAR Cardiovascular: DENIES: Chest pain - RESPIRATORY Respiratory: DENIES: Trouble Breathing, Coughing - GASTROINTESTINAL Gastrointestinal: DENIES: Abdominal Pain, Nausea, Patient vomiting, Diarrhea, Constipation, Black / Bloody Stools - URINARY Urinary: DENIES: Dysuria, Urgency, Frequency - REPRODUCTIVE Reproductive: DENIES: :, Postmenopausal, Abnormal bleeding / discharge - MUSCULOSKELETAL Musculoskeletal: DENIES: Extremity pain, Back Pain, Neck Pain, Swelling - DERM Skin Color: Normal Skin Problems: None Past Medical History - General Information source: Patient - Social History Smoking Status: Never Smoker Cigarette use (# per day): No Chew tobacco use (# tins/day): No Smoking Education Provided: No Drug Abuse: None Lives with: Family Family History: Reviewed & Not Pertinent Patient has suicidal ideation: No Patient has homicidal ideation: No - Past Medical History Cardiac Medical History: Reports: Hx Heart Attack Pulmonary Medical History: Reports: None Neurological Medical History: Reports: Hx Seizures - Alcohol withdrawal; last episode March of last year. Endocrine Medical History: Reports: None Renal/ Medical History: Reports: None Malignancy Medical History: Reports: None GI Medical History: Reports: None Musculoskeltal Medical History: Reports None Skin Medical History: Reports Hx Cellulitis Psychiatric Medical History: Reports: Hx Anxiety, Hx Depression Traumatic Medical History: Reports: None Infectious Medical History: Reports: None Past Surgical History: Reports: Hx Breast Surgery - Breast implants, Other - [place] teeth extraction. Lasik surgery. - Immunizations Hx Diphtheria, Pertussis, Tetanus Vaccination: Yes Vertical Provider Document - CONSTITUTIONAL Agree With Documented VS: Yes Exam Limitations: No Limitations General Appearance: WD/WN, Moderate Distress - INFECTION CONTROL TRAVEL OUTSIDE OF THE [place] IN LAST 30 DAYS: No - HEENT HEENT: Atraumatic, Normal ENT Exam, Normocephalic, PERRLA - NECK Neck: Normal Inspection, Supple, Thyroid Normal - RESPIRATORY Respiratory: Breath Sounds Normal, No Respiratory Distress - CARDIOVASCULAR Cardiovascular: Regular Rhythm, Tachycardia - Due to panic attack - MUSCULOSKELETAL/EXTREMETIES Musculoskeletal/Extremeties: MAEW, FROM, Non-Tender - NEURO Level of Consciousness: Awake, Alert - Very anxious - DERM Integumentary: Warm, Dry, No Rash Course - Re-evaluation Re-evalutation: 09/25/17 22:19 She was treated with a Xanax 0.5 mg given resources for mental health caregivers to the . Patient was discharged home in the care of her . Patient instructed to please call 1 of the provided resources tomorrow for follow-up care. Patient and verbalized understanding and acceptance of discharge planning. - Vital Signs Vital signs: Temp Pulse Resp BP Pulse Ox 98.6 F 108 H 20 136/79 H 98 09/25/17 17:28 09/25/17 17:28 09/25/17 17:28 09/25/17 17:28 09/25/17 17:28 Discharge - Discharge Clinical Impression: Panic attack as reaction to stress Condition: Stable Disposition: HOME, SELF-CARE Instructions: Anxiety ([facility]) Additional Instructions: Panic Attack The cause of panic attacks is unknown. Symptoms can include chest pain, shortness of breath, palpitations, sweats, and a sense of smothering or impending doom. In time, the panic attacks can lead to generalized anxiety and phobias. Because the symptoms can mimic heart attack, pulmonary embolism, and other serious diseases, the physician has evaluated you for these conditions. There is no evidence of a serious problem. An acute panic attack usually goes away by itself without treatment. A severe attack can be treated with medicine to calm you. Long-term, antidepressant medicines may help prevent attacks. Counselling can also be very beneficial in dealing with panic attacks. Panic attacks are less likely if you are getting regular exercise, proper diet, and plenty of sleep. It's normal for panic attacks to cause many frightening symptoms. However, you should call or return if your symptoms change significantly or if you are worsening. Benzodiazepines You have been given a benzodiazepine medication. Examples of this type of medicine include Valium, Xanax, Librium, Ativan, and Halcion. Benzodiazepines have many uses. Medications of this type are used for insomnia, anxiety, muscle spasms, seizures, and drug and alcohol withdrawal. You may become very drowsy when you first take the medication. You should not drive or operate machinery while under its effects. Do not combine the medication with alcohol, or with any other medication without talking to your doctor. Do not take if without specific instruction from your cost controller. Some benzodiazepines may have harmful interactions with oral antifungal medicines such as ketoconazole, itraconazole, and nefazodone. If you are taking an antifungal medicine, discuss this with your doctor before taking benzodiazepines. FOLLOW-UP CARE: If you have been referred to a physician for follow-up care, call the physician s office for an appointment as you were instructed or within the next two days. If you experience worsening or a significant change in your symptoms, notify the physician immediately or return to the Emergency Department at any time for re-evaluation. Please call 1 of your resources and follow-up with someone within the next couple days. Forms: Elevated Blood Pressure, Return to Work Referrals: DANNY LEON NP [NO LOCAL MD] - Follow up as needed
[2017-09-25 19:52] VITALS: BP 121/77
== END 2017-09-25 19:20 | disposition home or self-care (01) ==
LOC: ER 17:22
DX: F43.0 Acute stress reaction (principal); I25.2 Old myocardial infarction; I10 Essential (primary) hypertension
CPT/HCPCS: 99283

== ENCOUNTER 2018-01-01 15:18 | Emergency (ER) | payer OTHER ==
[2018-01-01] MEDS ORDERED: THIAMINE HCL 100 MG, FOLIC ACID 1 MG in NORMAL SALINE 250 ML IV ONE (15:59)
[2018-01-01] MEDS ORDERED: LORAZEPAM INJ 2 MG/1 ML VIAL IV ONE ×2 (15:59→19:05)
--- NOTE | 2018-01-01 16:01 | ER Document Report ---
ED Medical Screen (RME) - General Chief Complaint: Chest Pain Stated Complaint: CHEST PAIN, ETOH WITHDRAWLS Time Seen by Provider: 01/01/18 15:58 Mode of Arrival: Ambulatory Information source: Patient Notes: 37-year-old female with alcoholism presents with generalized body cramping, lightheadedness, chest pain. Patient admits to relapsing from her alcohol use 4 days ago and has been drinking vodka every day since then. Her last drink was just prior to arrival. She states that in August 2016 she was withdrawing from alcohol when she had a cardiac arrest. I have greeted and performed a rapid initial assessment of this patient. A comprehensive ED assessment and evaluation of the patient, analysis of test results and completion of medical decision making process we will be contacted by additional ED providers. PHYSICAL EXAMINATION: Vital signs reviewed GENERAL: Well-appearing, well-nourished and in no acute distress. LUNGS: No respiratory distress Musculoskeletal: Normal range of motion NEUROLOGICAL: Normal speech, normal gait. PSYCH: Normal mood, normal affect. SKIN: Warm, Dry, normal turgor, no rashes or lesions noted. TRAVEL OUTSIDE OF THE [place] IN LAST 30 DAYS: No - HPI Onset: Just prior to arrival Onset/Duration: Gradual Quality of pain: Pressure Associated Symptoms: Body/muscle aches, Chest pain, Dizzy/lightheaded Exacerbated by: Denies Relieved by: Denies Similar symptoms previously: Yes Recently seen / treated by doctor: No - Related Data Smoking: Cigarettes Frequency of alcohol use: Heavy Drug Abuse: None Allergies/Adverse Reactions: No Known Allergies Allergy (Verified 11/19/13 20:02) Past Medical History - Social History Chew tobacco use (# tins/day): No Frequency of alcohol use: Heavy Drug Abuse: None - Past Medical History Cardiac Medical History: Reports: Hx Heart Attack Denies: Hx Congestive Heart Failure, Hx DVT, Hx Hypercholesterolemia, Hx Hypertension, Hx Pulmonary Embolism Pulmonary Medical History: Denies: Hx Asthma, Hx COPD Neurological Medical History: Reports: Hx Seizures - Alcohol withdrawal; last episode June of last year. Endocrine Medical History: Denies: Hx Diabetes Mellitus Type 1, Hx Diabetes Mellitus Type 2, Hx Hyperthyroidism, Hx Hypothyroidism Renal/ Medical History: Denies: Hx Peritoneal Dialysis GI Medical History: Denies: Hx Cirrhosis, Hx Gastroesophageal Reflux Disease, Hx Hepatitis Musculoskeltal Medical History: Denies Hx Arthritis Skin Medical History: Reports Hx Cellulitis, Denies Hx Eczema, Denies Hx Psoriasis Psychiatric Medical History: Reports: Hx Anxiety, Hx Depression - &Anxiety Infectious Medical History: Denies: Hx Hepatitis Past Surgical History: Reports: Hx Breast Surgery - Breast implants, Other - [place] teeth extraction. Lasik surgery. - Immunizations Hx Diphtheria, Pertussis, Tetanus Vaccination: Yes Physical Exam - Vital signs Vitals: Temp Pulse Resp BP Pulse Ox 99.2 F 122 H 18 130/77 H 97 01/01/18 15:34 01/01/18 15:34 01/01/18 15:34 01/01/18 15:34 01/01/18 15:34 Course - Vital Signs Vital signs: Temp Pulse Resp BP Pulse Ox 99.2 F 122 H 18 130/77 H 97 01/01/18 15:34 01/01/18 15:34 01/01/18 15:34 01/01/18 15:34 01/01/18 15:34
--- NOTE | 2018-01-01 16:06 | EKG REPORT ---
SEVERITY:- BORDERLINE ECG - SINUS TACHYCARDIA LOW VOLTAGE IN FRONTAL LEADS BORDERLINE T ABNORMALITIES, ANTERIOR LEADS : Confirmed by: Kavitha Navarrete 01-Jan-2018 16:05:48
[2018-01-01 17:05] LABS: ABSOLUTE BASOPHILS # (AUTO) 0.1 10^3/uL (0.0-0.2); ABSOLUTE LYMPHOCYTES (AUTO) 3.1 10^3/uL (0.5-4.7); ABSOLUTE MONOCYTES (AUTO) 0.6 10^3/uL (0.1-1.4); ABSOLUTE NEUT (AUTO) 7.8 10^3/uL (1.7-8.2); BASOPHILS % (AUTO) 0.7 % (0-2); EOSINOPHILS % (AUTO) 0.3 % (0-6); HEMATOCRIT 41.9 % (36.0-47.0); MEAN CORPUSCULAR HEMOGLOBIN 27.3 pg (27.0-33.4); MEAN CORPUSCULAR HGB CONC 33.4 g/dL (32.0-36.0); MEAN CORPUSCULAR VOLUME 82 fl (80-97); PLATELET COUNT 452 10^3/uL (150-450); RED BLOOD COUNT 5.13 10^6/uL (3.72-5.28); RED CELL DISTRIBUTION WIDTH 16.1 % (11.5-14.0); TOTAL CELLS COUNTED % (AUTO) 100 %; WHITE BLOOD COUNT 11.7 10^3/uL (4.0-10.5)
--- NOTE | 2018-01-01 17:10 | RADIOLOGY REPORT (SQ) ---
EXAM DESCRIPTION: CHEST 2 VIEWS COMPLETED DATE/TIME: 01/01/2018 4:59 pm REASON FOR STUDY: chest pain COMPARISON: 06/26/2015 TECHNIQUE: Frontal and lateral radiographic views of the chest acquired. NUMBER OF VIEWS: Two view. LIMITATIONS: None. FINDINGS: LUNGS AND PLEURA: No pneumothorax. No consolidation or pleural effusion. MEDIASTINUM AND HILAR STRUCTURES: Stable. HEART AND VASCULAR STRUCTURES: Stable. BONES: No acute findings. HARDWARE: None in the chest. OTHER: No other significant finding. IMPRESSION: NO ACUTE FINDINGS. TECHNICAL DOCUMENTATION: JOB ID: [id number] 2010 [employer]- All Rights Reserved Reading location - IP/workstation name: [email or web address]
[2018-01-01 17:15] LABS: APPEARANCE,URINE CLOUDY; BILIRUBIN,URINE NEGATIVE (NEGATIVE); GLUCOSE, URINE NEGATIVE (NEGATIVE); KETONES,URINE NEGATIVE (NEGATIVE); LEUKOCYTE ESTERASE,URINE NEGATIVE (NEGATIVE); NITRITE,URINE NEGATIVE (NEGATIVE); PROTEIN,URINE NEGATIVE (NEGATIVE); URINE SPECIFIC GRAVITY 1.002; UROBILINOGEN,URINE NEGATIVE mg/dL (<2.0)
[2018-01-01 17:21] LABS: COLOR,URINE YELLOW
[2018-01-01 17:29] LABS: URINE AMPHETAMINES SCREEN NEGATIVE; URINE BARBITURATES SCREEN NEGATIVE; URINE BENZODIAZEPINES SCREEN NEGATIVE; URINE COCAINE SCREEN NEGATIVE; URINE MARIJUANA (THC) SCREEN NEGATIVE; URINE METHADONE SCREEN NEGATIVE; URINE PHENCYCLIDINE SCREEN NEGATIVE
[2018-01-01 18:26] LABS: ALANINE AMINOTRANSFERASE 29 U/L (9-52); ALBUMIN 4.6 g/dL (3.5-5.0); ALCOHOL 204 mg/dL (NONE DETECTED); ALKALINE PHOSPHATASE 94 U/L (38-126); ANION GAP 14 (5-19); ASPARTATE AMINO TRANSFERASE 27 U/L (14-36); BILIRUBIN,DIRECT 0.5 mg/dL (0.0-0.4); BILIRUBIN,TOTAL 0.6 mg/dL (0.2-1.3); BLOOD UREA NITROGEN 10 mg/dL (7-20); CALCIUM 9.5 mg/dL (8.4-10.2); CARBON DIOXIDE 25 mmol/L (22-30); CHLORIDE 104 mmol/L (98-107); CREATINE KINASE 98 U/L (30-135); GLUCOSE 100 mg/dL (75-110); SODIUM 142.8 mmol/L (137-145); TOTAL PROTEIN 8.1 g/dL (6.3-8.2)
[2018-01-01 18:28] LABS: ACETAMINOPHEN < 10 ug/mL (10-30); SALICYLATE < 1.0 mg/dL (2.0-20.0)
[2018-01-01 18:41] LABS: CREATINE KINASE MB 0.55 ng/mL (<4.55)
[2018-01-01 18:42] LABS: TROPONIN I < 0.012 ng/mL
[2018-01-01] MEDS ORDERED: NORMAL SALINE 1000 ML 1,000 ML IV ONE (20:24)
--- NOTE | 2018-01-01 20:25 | ER Document Report ---
ED General - General Chief Complaint: Chest Pain Stated Complaint: CHEST PAIN, ETOH WITHDRAWLS Time Seen by Provider: 01/01/18 15:58 Mode of Arrival: Ambulatory Information source: Patient Notes: This is a 37-year-old female with a history of alcohol abuse in the past with alcohol withdrawal seizures that was sober for several months and had recently restarted her drinking. She presents to the emergency room with tremulousness, withdrawal type symptoms, feeling dehydrated. Her last drink was this morning. TRAVEL OUTSIDE OF THE [place] IN LAST 30 DAYS: No - HPI Onset: Just prior to arrival Onset/Duration: Gradual Quality of pain: Cramping Severity: None Pain Level: Denies Associated symptoms: Nausea. denies: Chest pain, Fever, Shortness of breath Exacerbated by: Denies Relieved by: Denies Similar symptoms previously: Yes Recently seen / treated by doctor: No - Related Data Allergies/Adverse Reactions: No Known Allergies Allergy (Verified 01/01/18 19:29) Past Medical History - General Information source: Patient - Social History Smoking Status: Former Smoker Cigarette use (# per day): No Chew tobacco use (# tins/day): No Frequency of alcohol use: Heavy Drug Abuse: None Lives with: Spouse/Significant other Family History: Reviewed & Not Pertinent Patient has suicidal ideation: No Patient has homicidal ideation: No - Past Medical History Cardiac Medical History: Reports: Hx Heart Attack Denies: Hx Congestive Heart Failure, Hx DVT, Hx Hypercholesterolemia, Hx Hypertension, Hx Pulmonary Embolism Pulmonary Medical History: Denies: Hx Asthma, Hx COPD Neurological Medical History: Reports: Hx Seizures - Alcohol withdrawal; last episode June of last year. Endocrine Medical History: Denies: Hx Diabetes Mellitus Type 1, Hx Diabetes Mellitus Type 2, Hx Hyperthyroidism, Hx Hypothyroidism Renal/ Medical History: Denies: Hx Peritoneal Dialysis GI Medical History: Denies: Hx Cirrhosis, Hx Gastroesophageal Reflux Disease, Hx Hepatitis Musculoskeletal Medical History: Denies Hx Arthritis Skin Medical History: Reports Hx Cellulitis, Denies Hx Eczema, Denies Hx Psoriasis Psychiatric Medical History: Reports: Hx Anxiety, Hx Depression - &Anxiety Infectious Medical History: Denies: Hx Hepatitis Past Surgical History: Reports: Hx Breast Surgery - Breast implants, Other - [place] teeth extraction. Lasik surgery. - Immunizations Hx Diphtheria, Pertussis, Tetanus Vaccination: Yes Review of Systems - Review of Systems Constitutional: denies: Chills, Fever EENT: No symptoms reported Cardiovascular: Palpitations Respiratory: Cough. denies: Short of breath Gastrointestinal: Nausea, Poor fluid intake Genitourinary: No symptoms reported Female Genitourinary: No symptoms reported Musculoskeletal: No symptoms reported Skin: No symptoms reported Hematologic/Lymphatic: No symptoms reported Neurological/Psychological: See HPI, Other - Tremulousness Physical Exam - Vital signs Vitals: Temp Pulse Resp BP Pulse Ox 99.2 F 122 H 18 130/77 H 97 01/01/18 15:34 01/01/18 15:34 01/01/18 15:34 01/01/18 15:34 01/01/18 15:34 Notes: Physical exam: GENERAL: Patient is alert and oriented x3, she is tremulous, she does have tachycardia. HEAD: Atraumatic, normocephalic. EYES: Pupils equal round and reactive to light, extraocular movements intact, sclera anicteric, conjunctiva are normal. ENT: TMs normal, nares patent, oropharynx clear without exudates. Moist mucous membranes. NECK: Normal range of motion, supple without obvious mass or JVD. LUNGS: Breath sounds clear to auscultation bilaterally and equal. No wheezes rales or rhonchi. HEART: Regular rate and rhythm without murmurs, rubs or gallops. ABDOMEN: Soft, normoactive bowel sounds. No tenderness to palpation. No guarding, no rebound. No masses appreciated. EXTREMITIES: Normal range of motion, no pitting or edema. No clubbing or cyanosis. NEUROLOGICAL: Cranial nerves II through XII grossly intact. Normal speech, moving all extremities. PSYCH: Normal mood, normal affect. SKIN: Warm, Dry, normal turgor, no rashes or lesions noted. Course - Re-evaluation Re-evalutation: 01/01/18 21:32 Patient resting comfortably. Heart rate 93. Blood pressure 111/62, respiratory rate 18. She without complaints. IV fluids completed. - Vital Signs Vital signs: Temp Pulse Resp BP Pulse Ox 99.2 F 122 H 18 110/74 99 01/01/18 15:34 01/01/18 15:34 01/01/18 22:01 01/01/18 22:01 01/01/18 22:01 - Laboratory Result Diagrams: 01/01/18 16:26 01/01/18 17:55 Laboratory results interpreted by me: 01/01/18 01/01/18 16:26 17:55 WBC 11.7 H RDW 16.1 H Plt Count 452 H Direct Bilirubin 0.5 H Salicylates < 1.0 L Acetaminophen < 10 L - Diagnostic Test Radiology reviewed: Image reviewed, Reports reviewed - No infiltrates Discharge - Discharge Clinical Impression: Alcohol withdrawal Condition: Stable Disposition: HOME, SELF-CARE Additional Instructions: Note as we discussed, you can take the Ativan pill when you get home. It is absolutely important that you not drink anymore. I prescribed a medicine that interacts with alcohol and will only make matters worse. The Ativan is for alcohol withdrawal ultimately. It will help with any panic attacks or nervousness. Take it as prescribed only as needed, and gently wean down the amount you use every few days. I want you to start back up into the alcohol Anonymous program. I want you to go back to your psychiatrist to talk about the Neurontin issue. Return to the emergency room for any concerns that she getting worse. Return if you have chest pain or shortness of breath or worsening tremors. Prescriptions: Lorazepam [Ativan 1 mg Tablet] 1 tab PO TID #20 tablet
[2018-01-01] MEDS ORDERED: LORAZEPAM 1 MG TABLET PO ONE (20:27)
[2018-01-01 22:44] VITALS: BP 110/74
== END 2018-01-01 22:50 | disposition home or self-care (01) ==
LOC: ER 15:18
DX: F10.239 Alcohol dependence with withdrawal, unspecified (principal); R11.0 Nausea; R25.2 Cramp and spasm; R00.0 Tachycardia, unspecified; R00.2 Palpitations; R05 Cough; I25.2 Old myocardial infarction; Z87.891 Personal history of nicotine dependence
CPT/HCPCS: 93005; 96376; 99285; 96361; 96375; 96365; 36415; 82553; 80307 ×4; 82550; 83735; 85025; 81025; 80053; 81001; 84484; 71046; 93010; J3490; J2060; J3411; J7050

== ENCOUNTER 2019-03-29 05:00 | Emergency (ER) | payer OTHER ==
[2019-03-29 05:08] VITALS: BP 118/71
== END 2019-03-29 07:00 | disposition left against medical advice (07) ==
LOC: ER 05:00
DX: Z53.21 Procedure and treatment not carried out due to patient leaving prior to being seen by health care provider (principal)